=== PATIENT | female | born 1990 | race Caucasian/White ===

== ENCOUNTER 2019-10-18 08:00 | Inpatient (IN) ==
[2019-10-18] MEDS ORDERED: Azithromycin 500 MG in 0.9 % Sodium Chloride 250 ML IVPB PRN (08:21)
[2019-10-18] MEDS ORDERED: Lidocaine 1% 20 ML MDV INFILT PRN (08:21)
[2019-10-18] MEDS ORDERED: Famotidine 20 MG/2 ML VIAL IVP PRN (08:21)
[2019-10-18] MEDS ORDERED: Ondansetron 4 MG/2 ML VIAL IVP PRN (08:21)
[2019-10-18] MEDS ORDERED: Naloxone 0.4 MG/ML INJ IVP PRN (08:21)
[2019-10-18] MEDS ORDERED: Metoclopramide 10 MG/2 ML VIAL IVP PRN (08:21)
[2019-10-18] MEDS ORDERED: *HR* FentaNYL (PF) 100 MCG/2 ML VIAL IVP PRN (08:21)
[2019-10-18] MEDS ORDERED: EPHEDrine 50 MG/ML VIAL IVP PRN (08:26)
[2019-10-18] MEDS ORDERED: Epidural Premix (fent/bupiv) 110 ML EP SCH (08:30)
[2019-10-18] MEDS ORDERED: miSOPROStoL 25 MCG TABLET VG PRN (09:26)
[2019-10-18 09:32] LABS: Basophils % 0.7 %; Eosinophils # 0.1 K/mcL (0.0-0.6); Eosinophils % 1.2 %; Hematocrit 35.7 % (35.3-44.9); Immature Granulocytes % 1.6 % (0-4); Lymphocytes # 1.1 K/mcL (0.6-4.6); Lymphocytes % 19.5 %; Mean Corpuscular HGB Conc 33.6 g/dL (31.6-35.5); Mean Corpuscular Hemoglobin 33.2 pg (28.0-33.3); Mean Corpuscular Volume 98.9 fL (83.0-100.0); Monocytes # 0.3 K/mcL (0.0-1.3); Monocytes % 5.1 %; Neutrophils # 4.1 K/mcL (1.6-8.9); Platelet Count 185 K/mcL (140-400); Red Blood Count 3.61 M/mcL (3.82-4.97); Red Cell Distribution Width 13.4 % (11.5-14.5); Segmented Neutrophils % 71.9 %; White Blood Count 5.7 K/mcL (4.3-11.1)
[2019-10-18 09:38] LABS: Amphetamine Screen,Urine Negative ng/mL (Cutoff=1000); Barbiturate Screen,Urine Negative ng/mL (Cutoff=200); Benzodiazepines Screen,Urine Negative ng/mL (Cutoff=200); Cannabinoid Screen,Urine Negative ng/mL (Cutoff = 50); Cocaine Screen,Urine Negative ng/mL (Cutoff= 300); Opiate Screen,Urine Negative ng/mL (Cutoff=300); Phencyclidine Screen,Urine Negative ng/mL (Cutoff=25)
[2019-10-18] MEDS ORDERED: Oxytocin 20 units/ LR 1000 mL 20 UNIT/1,000 ML BAG IVC SCH ×2 (14:15→20:42)
[2019-10-18] MEDS: Ringers Solution, Lactated 1,000 ML IVC SCH ×2 (14:22→16:48)
[2019-10-18] MEDS ORDERED: Rho Immune Globulin 1,500 UNIT SYRINGE IM PRN (20:42)
[2019-10-18] MEDS ORDERED: Benzocaine/Menthol 56 GM AEROSOL SPRAY TP PRN (20:42)
[2019-10-18] MEDS ORDERED: Lanolin 7 G OINT...G. TP PRN (20:42)
[2019-10-18] MEDS ORDERED: Acetaminophen 325 MG TABLET PO PRN (20:42)
[2019-10-18] MEDS: Ibuprofen 600 MG TABLET PO PRN (21:37)
[2019-10-19] MEDS: Ibuprofen 600 MG TABLET PO PRN (04:29)
[2019-10-19] MEDS: *HR* OxyCODONE/APAP 5/325 TABLET PO PRN ×2 (07:50→19:11)
[2019-10-19] MEDS ORDERED: Prenatal Vit/FA 1 EACH TABLET PO SCH (09:00)
[2019-10-19] MEDS ORDERED: Isovue-370 500 ML BOTTLE IVP ONE (14:02)
[2019-10-19 17:02] LABS: eGFR For African Americans > 60 (> 60); eGFR For Non-African Americans > 60 (> 60)
[2019-10-19 18:37] VITALS: BP 118/80
== END 2019-10-19 20:40 | disposition home or self-care (01) | DRG 807 ==
LOC: 1NENULAB 08:04 → 1NENUOBS 20:41
PROVIDERS: ADMIT Obstetrics & Gynecology; ATTEND Obstetrics & Gynecology